=== PATIENT | female | born 1975 | race Hispanic/Latino ===

== ENCOUNTER 2021-12-23 06:07 | Day surgery (SDC) | payer BC ==
[~2021-12-23 06:07] MED LIST: LACTATED RINGERS 1,000 ML IV SCH; MIDAZOLAM 2 MG/2 ML INJ IV NR
--- NOTE | 2021-12-23 07:57 | Anesthesia Consultation ---
Anesthesia Consult and Med Hx - Airway Anesthetic Teeth Evaluation: Good ROM Head & Neck: Adequate Mental/Hyoid Distance: Adequate Mallampati Class: Class II Intubation Access Assessment: Probably Good - Pulmonary Exam CTA: Yes - Cardiac Exam Cardiac Exam: RRR - Pre-Operative Health Status ASA Pre-Surgery Classification: ASA2 Proposed Anesthetic Plan: General - Pulmonary Hx Smoking: Yes (vapes occasionally) Hx Asthma: No (Inhaler started 1 year ago - last used 3 days ago) Hx Respiratory Symptoms: No Hx Sleep Apnea: No - Cardiovascular System Hx Hypertension: Yes Hx Heart Attack/AMI: No Hx Cardia Arrhythmia: No Hx Peripheral Vascular Disease: No - Central Nervous System Hx Neuromuscular Disorder: Yes (neuropathy/SI joint issues) Hx Seizures: No Hx Psychiatric Problems: Yes (anxiety, insomnia) - Gastrointestinal Hx Gastroesophageal Reflux Disease: Yes - Endocrine Hx Renal Disease: No Hx Liver Disease: No Hx Non-Insulin Dependent Diabetes: No Hx Thyroid Disease: No - Hematic Hx Anemia: No Hx Sickle Cell Disease: No - Other Systems Hx Alcohol Use: Yes (occasional) Hx Substance Use: No Hx Cancer: No Hx Obesity: No - Additional Comments Anesthesia Medical History Comments: no hx of anesthetic complications
--- NOTE | 2021-12-23 07:57 | Anesthesia Day of Surgery ---
Anesthesia Day of Surgery - Day of Surgery Patient Examined: Yes Patient H&P Reviewed: Yes Patient is NPO: Yes
[2021-12-23] MEDS ORDERED: FAMOTIDINE 20 MG/2 ML INJ IV ONE (07:58)
[2021-12-23] MEDS ORDERED: ceFAZolin/STERILE WATER 2 GM/20 ML SYRINGE IV NR (08:00)
[2021-12-23] MEDS ORDERED: propofoL 200 MG/20 ML VIAL IV ONE (08:02)
[2021-12-23] MEDS ORDERED: LIDOCAINE MPF (2%) 20 MG/1 ML VIAL 5 ML ONE (08:02)
[2021-12-23] MEDS ORDERED: fentaNYL 100 MCG/2 ML INJ ONE (08:03)
[2021-12-23] MEDS ORDERED: WATER FOR IRRIG STERILE 2000 ML IR ONE (08:38)
[2021-12-23] MEDS ORDERED: WATER FOR IRRIG STERILE 1,500 ML BOTTLE IR ONE (08:38)
--- NOTE | 2021-12-23 08:52 | Discharge Summary ---
Short Stay Discharge Plan Activity: other (no straining ) Weight Bearing Status: Full Weight Bearing Diet: low fat, low cholesterol, low salt Special Instructions: other (inc fluids ) Follow up with: ERNIE SPENCER MD [Primary Care Provider] - 7 Days AUSTIN TATE MD [Staff Physician] - 7 Days
--- NOTE | 2021-12-23 08:53 | Post Operative Note ---
Date of procedure: 12/23/21 Pre-op diagnosis: left stone Post-op diagnosis: same Findings: impacted upper Procedure: cysto rpg j stent Anesthesia: GETA Surgeon: AUSTIN TATE Estimated blood loss: none Pathology: none Condition: stable Disposition: PACU
[2021-12-23] MEDS ORDERED: KETOROLAC 30 MG/1 ML INJ IV PRN (09:30)
[2021-12-23] MEDS ORDERED: HYDROcodone/ACETAMINOPHEN 5-325 MG TAB PO PRN (10:00)
[2021-12-23] MEDS ORDERED: HYDROmorphone 1 MG/1 ML INJ IV PRN (10:00)
--- NOTE | 2021-12-23 10:46 | Fluoroscopy Report ---
FLUOROSCOPY RETROGRADE UROGRAPHY INDICATION: LT URETERAL STONE. COMPARISON: None. IMPRESSION: 1 minute and 24 seconds of fluoroscopy time was provided by radiology during left ureter al stent placement. 3 fluoroscopic images are presented demonstrating a stone in the proximal left u reter and placement of a left ureteral stent. Please correlate with the procedural report as needed. Signer Name: Berny Garsia Jr, MD Signed: 12/23/2021 10:41 AM Workstation Name: [id number]
[2021-12-23 11:34] VITALS: BP 144/83
--- NOTE | 2021-12-23 12:45 | Post Anesthesia Evaluation ---
- Post Anesthesia Evaluation Patient Participated: Yes Airway Patent: Yes Stable Respiratory Function: Yes Nausea/Vomiting: No Temp > 96.8F: Yes Pain Manageable: Yes Adequeate Hydration: Yes Anesthesia Complications: No
--- NOTE | 2021-12-23 13:37 | Operative Report ---
DATE OF SURGERY: 12/23/2021 PREOPERATIVE DIAGNOSES: Severe left flank pain, left upper ureteral stone which appears to be impacted stone. POSTOPERATIVE DIAGNOSES: Severe left flank pain, left upper ureteral stone which appears to be impacted stone. PROCEDURES: Cystoscopy, left retrograde, left double-J stent, attempted stone manipulation. SURGEON: Christ Monique MD ANESTHESIA: General. FINDINGS: This is a woman with severe pain in the left side, moderate hydronephrosis; she now presents for treatment. She understands all the risks and high chance that this may be a staged procedure. DESCRIPTION OF PROCEDURE: The patient was brought to operating room and placed on the operating table. Following induction of anesthesia, placed in lithotomy position, prepped and draped in usual sterile fashion. She had a prominent cystocele, with the orifices somewhat distal. A left retrograde was done and showed a very tight ureter, with the stone at around L3-L4 level. The dye did go past and moderate hydronephrosis. We were able to get a wire by it. We tried to manipulate the stone up into the kidney, but it was really wedged in there, and we could not get a 6-Ugandan past the stone over the wire. It was very, very tight. At that point, we made a decision not to try to manipulate the stone and do a ureteroscopy. We placed a 4.5 stent, coiled in there at the UPJ and in the bladder; this was 26 cm. The patient tolerated the procedure well. PLAN: Followup lithotripsy and/or ureteroscopy. This will be discussed with her at the next visit. She was brought to recovery in stable condition. TID: [id number] RECEIPT: [id number] ERNIE/ALEKSEY
== END 2021-12-23 10:30 | disposition home or self-care (01) ==
LOC: OR 06:07
PROVIDERS: ATTEND Urology
DX: N13.2 Hydronephrosis with renal and ureteral calculous obstruction (principal); I10 Essential (primary) hypertension; K21.9 Gastro-esophageal reflux disease without esophagitis; F41.9 Anxiety disorder, unspecified; F17.210 Nicotine dependence, cigarettes, uncomplicated; Z88.2 Allergy status to sulfonamides; Z88.5 Allergy status to narcotic agent; Z88.8 Allergy status to other drugs, medicaments and biological substances; Z79.899 Other long term (current) drug therapy; Z72.89 Other problems related to lifestyle
CPT/HCPCS: 52330; 52332; 74420; 81025; C1758; C1769; C2617; J0690; J1170; J1885; J2250; J2704; J3010; J3490; J7120; Q9967

== ENCOUNTER 2022-01-12 09:01 | Day surgery (SDC) | payer BC ==
[2022-01-12] MEDS ORDERED: LACTATED RINGERS 1,000 ML ONE (09:32)
[2022-01-12] MEDS ORDERED: HYDROmorphone 0.5 MG/0.5 ML INJ IV PRN ×2 (09:50)
[2022-01-12] MEDS ORDERED: ONDANSETRON 4 MG/2 ML INJ IV PRN (09:50)
--- NOTE | 2022-01-12 09:51 | Anesthesia Day of Surgery ---
Anesthesia Day of Surgery - Day of Surgery Patient Examined: Yes Patient H&P Reviewed: Yes Patient is NPO: Yes
--- NOTE | 2022-01-12 09:53 | Anesthesia Consultation ---
Anesthesia Consult and Med Hx Date of service: 01/12/22 - Airway Anesthetic Teeth Evaluation: Good (Missing) ROM Head & Neck: Adequate Mental/Hyoid Distance: Adequate Mallampati Class: Class II Intubation Access Assessment: Good - Pre-Operative Health Status ASA Pre-Surgery Classification: ASA2 Proposed Anesthetic Plan: General - Pulmonary Hx Smoking: Yes (vapes occasionally) Hx Asthma: Yes (FREQUENT INHALER USE) Hx Respiratory Symptoms: No Hx Sleep Apnea: No (ROSALIO PRE SCREEN LOW RISK) - Cardiovascular System Hx Hypertension: Yes Hx Cardia Arrhythmia: No Hx Peripheral Vascular Disease: No - Central Nervous System Hx Neuromuscular Disorder: Yes (neuropathy/SI joint issues) Hx Seizures: No Hx Back Pain: Yes (AND NECK) Hx Psychiatric Problems: Yes (anxiety, insomnia) - Gastrointestinal Hx Gastroesophageal Reflux Disease: Yes - Endocrine Hx Renal Disease: Yes (Stones) Hx Liver Disease: No Hx Non-Insulin Dependent Diabetes: No Hx Thyroid Disease: No - Hematic Hx Anemia: No Hx Sickle Cell Disease: No - Other Systems Hx Alcohol Use: Yes (occasional) Hx Substance Use: No Hx Cancer: No Hx Obesity: No - Additional Comments Anesthesia Medical History Comments: Was here [id number]
[2022-01-12] MEDS ORDERED: MIDAZOLAM 2 MG/2 ML INJ IV NR ×2 (10:00→10:37)
[2022-01-12] MEDS ORDERED: CELECOXIB 200 MG CAP PO SCH (10:00)
[2022-01-12] MEDS ORDERED: LACTATED RINGERS 1,000 ML IV SCH (10:15)
[2022-01-12] MEDS ORDERED: ACETAMINOPHEN 500 MG TAB PO ONE (11:00)
[2022-01-12] MEDS ORDERED: ceFAZolin/Water 2 GM/20 ML 2 GM/20 ML SYRINGE IV ONE (11:18)
[2022-01-12] MEDS: HYDROmorphone 1 MG/1 ML INJ ONE (11:25)
[2022-01-12] MEDS ORDERED: HYDROmorphone 0.5 MG/0.5 ML INJ IV ONE ×2 (12:00→12:15)
[2022-01-12] MEDS ORDERED: fentaNYL 100 MCG/2 ML INJ ONE (12:19)
[2022-01-12] MEDS ORDERED: propofoL 200 MG/20 ML VIAL IV ONE (12:20)
[2022-01-12] MEDS ORDERED: MIDAZOLAM 2 MG/2 ML INJ IV SCH (12:21)
[2022-01-12] MEDS ORDERED: HYDROmorphone 1 MG/1 ML INJ ONE (12:51)
--- NOTE | 2022-01-12 13:27 | Post Operative Note ---
Date of procedure: 01/12/22 Pre-op diagnosis: ureteral stone Post-op diagnosis: same Findings: same Procedure: left eswl Anesthesia: VICTOR MANUEL Surgeon: AUSTIN TATE Estimated blood loss: none Pathology: none Condition: stable Disposition: PACU
--- NOTE | 2022-01-12 13:28 | Discharge Summary ---
Short Stay Discharge Plan Activity: other (no straining ) Weight Bearing Status: Full Weight Bearing Diet: low fat, low cholesterol, low salt Special Instructions: other (inc fluids ) Durable Medical Equipment Needed Upon Discharge: other (stilll has stent ) Follow up with: ERNIE SPENCER MD [Primary Care Provider] - 7 Days AUSTIN TATE MD [Staff Physician] - 7 Days
--- NOTE | 2022-01-12 13:31 | Operative Report ---
DATE OF SURGERY: 01/12/2022 PREOPERATIVE DIAGNOSIS: Left upper ureteral stone. POSTOPERATIVE DIAGNOSIS: Left upper ureteral stone. PROCEDURES: Left lithotripsy with previous double-J stent. SURGEON: Dr. Monique. ANESTHESIA: General. FINDINGS: This is a woman with severe pain. We placed a stent on an emergency basis. She now presents for lithotripsy. She understands she may need a followup ureteroscopy. This is a significant size stone. We will try to break it into few pieces. It was very wedged into the ureter and even difficult previously to get a stent in. DESCRIPTION OF PROCEDURE: The patient was brought to the operating room and placed on the operating table. Following induction of anesthesia, placed over the focal point without difficulty. The stone lateral to the stent was well seen and shocks were begun at 1 kV. Renal pause was carried out and we went up to a maximum of 8 kV and 2600 shocks were given. The patient tolerated the procedure well. Plan will be possible followup ureteroscopy. We will call her now and let him know. She is being brought to recovery in stable condition. TID: [id number] RECEIPT: [id number] ERNIE/WEI
[2022-01-12 15:05] VITALS: BP 147/87
--- NOTE | 2022-01-12 16:33 | Post Anesthesia Evaluation ---
- Post Anesthesia Evaluation Patient Participated: Yes Airway Patent: Yes Stable Respiratory Function: Yes Nausea/Vomiting: No Temp > 96.8F: Yes Pain Manageable: Yes Adequeate Hydration: Yes Anesthesia Complications: No Block Receding Appropriately: Not Applicable Patient on Ventilator: No
== END 2022-01-12 15:00 | disposition home or self-care (01) ==
LOC: OR 09:01
PROVIDERS: ATTEND Urology
DX: N20.1 Calculus of ureter (principal); G43.909 Migraine, unspecified, not intractable, without status migrainosus; J45.909 Unspecified asthma, uncomplicated; K21.9 Gastro-esophageal reflux disease without esophagitis; M19.90 Unspecified osteoarthritis, unspecified site; F41.9 Anxiety disorder, unspecified; Z79.899 Other long term (current) drug therapy; Z98.890 Other specified postprocedural states; Z88.5 Allergy status to narcotic agent; Z88.2 Allergy status to sulfonamides; Z88.8 Allergy status to other drugs, medicaments and biological substances; Z90.49 Acquired absence of other specified parts of digestive tract; Z87.440 Personal history of urinary (tract) infections; Z72.89 Other problems related to lifestyle
CPT/HCPCS: 50590; 81025; J0690; J1170; J2250; J2704; J3010; J7120; U0003

== ENCOUNTER 2022-02-01 10:00 | Day surgery (SDC) | payer BC ==
[2022-02-01] MEDS ORDERED: FAMOTIDINE 20 MG/2 ML INJ IV ONE ×2 (11:00→11:04)
--- NOTE | 2022-02-01 11:03 | Anesthesia Consultation ---
Anesthesia Consult and Med Hx Date of service: 02/01/22 - Airway Anesthetic Teeth Evaluation: Good (3 missing teeth in the back) ROM Head & Neck: Adequate Mental/Hyoid Distance: Adequate Mallampati Class: Class II Intubation Access Assessment: Probably Good - Pre-Operative Health Status ASA Pre-Surgery Classification: ASA2 Proposed Anesthetic Plan: General - Pulmonary Hx Smoking: Yes (vapes occasionally) Hx Asthma: Yes ( INHALER USE, last time one month ago) Hx Respiratory Symptoms: No Hx Sleep Apnea: No (ROSALIO PRE SCREEN LOW RISK) - Cardiovascular System Hx Hypertension: Yes Hx Cardia Arrhythmia: No Hx Peripheral Vascular Disease: No - Central Nervous System Hx Neuromuscular Disorder: Yes (neuropathy/SI joint issues) Hx Seizures: No Hx Back Pain: Yes (AND NECK) Hx Psychiatric Problems: Yes (anxiety, insomnia) - Gastrointestinal Hx Gastroesophageal Reflux Disease: Yes - Endocrine Hx Renal Disease: Yes (Stones) Hx Liver Disease: No Hx Non-Insulin Dependent Diabetes: No Hx Thyroid Disease: No - Hematic Hx Anemia: No Hx Sickle Cell Disease: No - Other Systems Hx Alcohol Use: Yes (occasional) Hx Substance Use: No Hx Cancer: No Hx Obesity: No
--- NOTE | 2022-02-01 11:04 | Anesthesia Day of Surgery ---
Anesthesia Day of Surgery - Day of Surgery Patient Examined: Yes Patient H&P Reviewed: Yes Patient is NPO: Yes
[2022-02-01] MEDS ORDERED: ONDANSETRON 4 MG/2 ML INJ IV PRN (11:09)
[2022-02-01] MEDS ORDERED: oxyCODONE /ACETAMINOPHEN 5-325MG TAB PO PRN (11:09)
[2022-02-01] MEDS ORDERED: HYDROmorphone 1 MG/1 ML INJ IV ONE (11:10)
[2022-02-01] MEDS ORDERED: ceFAZolin/STERILE WATER 2 GM/20 ML SYRINGE IV SCH (11:15)
[2022-02-01] MEDS ORDERED: ceFAZolin/Water 2 GM/20 ML 2 GM/20 ML SYRINGE IV ONE (11:19)
[2022-02-01] MEDS ORDERED: LIDOCAINE MPF (2%) 20 MG/1 ML VIAL 5 ML ONE (11:22)
[2022-02-01] MEDS ORDERED: propofoL 200 MG/20 ML VIAL IV ONE (11:23)
[2022-02-01] MEDS ORDERED: fentaNYL 100 MCG/2 ML INJ ONE (11:23)
[2022-02-01] MEDS ORDERED: ePHEDrine SULFATE 50 MG/1 ML INJ ONE (11:39)
[2022-02-01] MEDS ORDERED: dexAMETHasone 20 MG/5 ML VIAL ONE (12:22)
[2022-02-01] MEDS ORDERED: ONDANSETRON 4 MG/2 ML INJ ONE (12:22)
[2022-02-01] MEDS ORDERED: PHENYLEPHRINE/NS 1,000 MCG/10 ML SYRINGE (OR USE) IV ONE (12:22)
--- NOTE | 2022-02-01 12:43 | Post Operative Note ---
Date of procedure: 02/01/22 Pre-op diagnosis: left ureteral stonesd Post-op diagnosis: same Findings: same Procedure: cysto ureteroscopy laser Anesthesia: VICTOR MANUEL Surgeon: AUSTIN TATE Estimated blood loss: none Pathology: none Condition: stable Disposition: PACU
--- NOTE | 2022-02-01 12:45 | Discharge Summary ---
Short Stay Discharge Plan Activity: other (no straining ) Weight Bearing Status: Full Weight Bearing Diet: low fat, low cholesterol, low salt Special Instructions: other (inc fluids ) Durable Medical Equipment Needed Upon Discharge: other (j stent ) Follow up with: ERNIE SPENCER MD [Primary Care Provider] - 7 Days AUSTIN TATE MD [Staff Physician] - 7 Days
[2022-02-01] MEDS: HYDROmorphone 0.5 MG/0.5 ML INJ IV PRN ×2 (12:47→12:57)
[2022-02-01 13:17] VITALS: BP 131/75
[2022-02-01] MEDS ORDERED: WATER FOR IRRIG STERILE 2000 ML IR ONE (13:22)
--- NOTE | 2022-02-01 14:35 | Operative Report ---
DATE OF SURGERY: 02/01/2022 FINDINGS: The patient presented with sepsis. A stent was placed and she underwent lithotripsy as a second stage. The stone broke, but there was still significant fragments in the upper ureter. She now presents to clear that out. DESCRIPTION OF PROCEDURE: The patient was brought to the operating room and placed on the operating table. Following induction of anesthesia, placed in lithotomy position, prepped and draped in usual sterile fashion. The stent was withdrawn from the meatus and a wire coiled in the kidney. We used the double-lumen catheter and a second wire coiled in the kidney. Flexible ureteroscopy showed large number of stones in the upper ureter, which were lasered and some went back into the kidney. We were able to follow in the kidney and laser it some more. The patient tolerated the procedure well. A 6-Urdu coiled in the kidney and bladder. We left the string, spoke to her , brought her to recovery in stable condition. TID: [id number] RECEIPT: ERNIE/ZEKE
--- NOTE | 2022-02-02 08:15 | Fluoroscopy Report ---
INTRAOPERATIVE FLUOROSCOPY: ABDOMEN AND PELVIS INDICATION / CLINICAL INFORMATION: LEFT URETER STONES. TECHNIQUE: Intraoperative spot images were obtained during the procedure. FINDINGS: Intraprocedural images from left ureteral stent placement. Please refer to operative report for further information. Fluoroscopy Time: 1 minute . Fluoroscopy Images: 4. Signer Name: Kendall Baker MD Signed: 02/01/2022 1:14 PM Workstation Name: [email or web address]
== END 2022-02-01 13:55 | disposition home or self-care (01) ==
LOC: OR 10:00
PROVIDERS: ATTEND Urology
DX: N20.0 Calculus of kidney (principal); G43.909 Migraine, unspecified, not intractable, without status migrainosus; I10 Essential (primary) hypertension; J45.909 Unspecified asthma, uncomplicated; K21.9 Gastro-esophageal reflux disease without esophagitis; M19.90 Unspecified osteoarthritis, unspecified site; F41.9 Anxiety disorder, unspecified; Z88.5 Allergy status to narcotic agent; Z88.2 Allergy status to sulfonamides; Z88.8 Allergy status to other drugs, medicaments and biological substances; Z79.899 Other long term (current) drug therapy; Z90.49 Acquired absence of other specified parts of digestive tract; Z87.440 Personal history of urinary (tract) infections; Z72.89 Other problems related to lifestyle; Z98.890 Other specified postprocedural states
CPT/HCPCS: 52356; 74420; C1758; C1769; C2617; J0690; J1100; J1170; J2250; J2370; J2405; J2704; J3010; J3490; J7120; 74019